=== PATIENT | male | born 1930 | race Caucasian/White ===

== ENCOUNTER → 2018-11-15 | Outpatient (CLI) | payer MEDICARE ==
--- NOTE | 2018-11-20 00:51 | EEG ---
REQUEST PHYSICIAN: Dr. Bernard. VIDEO ELECTRONYSTAGMOGRAPHIC REPORT: AGE: 88 VNG INDICATIONS: Vertigo for one year getting worse, varies in spells, can be triggered by head and neck positions or body positions. VNG FINDINGS: SPONTANEOUS NYSTAGMUS: SACCADES: Saccades shows poor peak velocities, accuracies and latencies. GAZE TEST: Gaze with fixation shows no nystagmus in any of the directions of gaze including centrally with vision denied. SINUSOIDAL TRACKING: Tracking is impaired. OKN TEST: The patient unable to follow instructions. PAULA-HALLPIKE TEST: Unable to perform due to poor mobility POSITION TEST: The patient also unable to follow instructions. With eyes open in the sitting position, there is no nystagmus including with vision denied. Dynamic position testing unable to be performed due to extreme limited mobility. CALORIC TEST: Was not done. IMPRESSION: This is a very limited VNG. Patient unable to perform calorics and also many of the positions. There was no nystagmus, however, in the seated position. There were multiple abnormalities favoring central nervous system dysfunction. Clinical correlation necessary. ESPERANZA / IJN: [id number] / RADHA
== END | disposition home or self-care (01) ==
LOC: NEUROMAIN 08:29
PROVIDERS: ATTEND Otolaryngology
DX: R90.89 Other abnormal findings on diagnostic imaging of central nervous system (principal); R42 Dizziness and giddiness
CPT/HCPCS: 92540

== ENCOUNTER 2021-11-17 12:21 | Emergency (ER) | payer MEDICARE ==
[2021-11-17] MEDS ORDERED: SODIUM CHLORIDE 0.9% 1,000 ML IV ONE (12:58)
--- NOTE | 2021-11-17 13:07 | ED ---
General Adult HPI - General Chief complaint: Altered Mental Status Stated complaint: Unresponsive Time Seen by Provider: 11/17/21 12:42 Source: EMS, RN notes reviewed, old records reviewed Mode of arrival: EMS Limitations: altered mental status - History of Present Illness Initial comments: Patient is an 89-year-old male with past medical history remarkable for dementia with depression, atrial fibrillation status post watchmen, pacemaker no longer and anticoagulation, cancer who presents emergency Department complaining of altered mental status. This is the third time patient has had a similar episode. The episode consists of being nonverbal, and "closing his eyes and following asleep without any responsiveness." They're concerned that the patient was having some stiffness on the first episode. No history of trauma. States today that the patient ate breakfast, seemed more sleepy, and then fell asleep. They were unable to wake him and called EMS. Previously was previously seen at [facility]. Workups then including brain imaging revealed negative. They were told by the patient's neurologist that this may occur with the pa char's history dementia with depression. They concerned because this is the third episode of this. They skipped [facility] and came here for further evaluation as well as a second opinion on the matter. Patient currently has no acute complaints. He is easily awakened. Following basic commands. He is alert and oriented times 1 to 2 which is his baseline. Patient's family state that the episode seemed to resolve on their own. Last time he was admitted as he was dehydrated. - Related Data Home Medications Medication Instructions Recorded Confirmed Digoxin [Lanoxin] 125 mcg PO HS 11/17/21 11/17/21 Donepezil [Aricept] 10 mg PO DAILY 11/17/21 11/17/21 Dutasteride [Avodart] 0.5 mg PO DAILY 11/17/21 11/17/21 Magnesium Oxide [Magnesium] 500 mg PO DAILY 11/17/21 11/17/21 Metoprolol Tartrate [Lopressor] 12.5 mg PO BID 11/17/21 11/17/21 Multivit-Min/Folic/Vit K/Lycop 1 tab PO DAILY 11/17/21 11/17/21 [Men's Multivitamin Tablet] Allergies Allergy/AdvReac Type Severity Reaction Status Date / Time [id number] Reductase AdvReac Unknown Verified 11/17/21 13:40 Inhibitor tramadol AdvReac Hallucinati Verified 11/17/21 13:40 ons Review of Systems ROS Statement: Those systems with pertinent positive or pertinent negative responses have been documented in the HPI. Review of Systems: CONST: Denies fever EYES: Denies blurry vision ENT: Denies nasal congestion C/V: Denies Chest pain RESP: Denies shortness of breath GI: Denies abdominal pain : Denies dysuria SKIN: Denies rash. MSK: Denies joint pain. NEURO: Denies headache ROS Other: All systems not noted in ROS Statement are negative. Past Medical History Past Medical History: Atrial Fibrillation, Cancer, Dementia, Prostate Disorder Additional Past Medical History / Comment(s): colon cancer 1978, cancer 2017 History of Any Multi-Drug Resistant Organisms: None Reported Past Surgical History: Heart Catheterization With Stent Additional Past Surgical History / Comment(s): stent 01/26/05 and 09/08/10, macular hole suregery left eye 2017 Past Psychological History: Depression Smoking Status: Never smoker Past Alcohol Use History: Occasional Past Drug Use History: None Reported General Exam - General Exam Comments Initial Comments: General: Appears in no acute distress. HEAD: Normal with no signs of head trauma. EYES: PERRLA, EOMI, conjunctiva normal, no discharge. Pupils are 2 mm and equal bilaterally. ENT: Hearing grossly intact, normal oropharynx. RESPIRATORY: Clear breath sounds bilaterally. No wheezes, rales, or rhonchi. C/V: Regular rate and rhythm. S1 and S2 auscultated, no edema, peripheral pulses 2+ and intact throughout ABD: Abd is soft, nontender, nondistended EXT: Normal range of motion, no obvious deformity SKIN: No rashes or lesions observed on exposed skin. NEURO: Alert and oriented x 1-2, his baseline per family. Cranial nerves II-XII intact. No focal sensory or strength deficits. NIH of 0. GCS of 15. Patient is alert and following commands at this time. Easily arousable. Limitations: altered mental status Course Vital Signs 11/17/21 11/17/21 11/17/21 12:23 14:48 15:00 Temperature 97.9 F 98.2 F 98 F Pulse Rate 69 60 75 Respiratory 18 16 16 Rate Blood Pressure 190/93 131/75 130/68 O2 Sat by Pulse 98 98 96 Oximetry 11/17/21 17:57 Temperature Pulse Rate 69 Respiratory 16 Rate Blood Pressure 136/75 O2 Sat by Pulse 98 Oximetry Medical Decision Making - Medical Decision Making Based on the patient's presentation and physical exam, I'm concerned for altered mental status. Appears to be back at his baseline. I do agree with the assessment that the patient may be experiencing his progressive dementia with depression symptoms. He has been having episodes of catatonia at home, however they self resolved. However I cannot rule out other etiology at this time including dehydration or infectious. Did recommend we obtain a CT brain in addition to infectious laboratory studies, cardiac studies. Family was in agreement this plan. Patient is currently acting his baseline. Vital signs within normal limits. EKG shows no signs of acute ischemia.Laboratory studies were relatively unremarkable. Urine is still pending at this time. Troponin undetectable. Chest x-ray shows no acute cardio primary process. Brain CT shows what appears to be moderate hydrocephalus. Recommend evaluation by neurosurgery for possible shunting. On reevaluation, patient remains unchanged. He is at his baseline mental status. I spoke with the patient's as well as the patient I believe it is best to transfer him. Worsening hydrocephalus could explain the patient's worsening dementia, as well as his worsening urinary incontinence. They were in agreement this plan. I did speak with our neurologist, Dr. Blanchard who also was in agreement with the plan. Patient requires transfer for neurosurgery evaluation which cannot be completed here as we do not have neurosurgical services. I did see speak with Alphonso Daly, who accepted the patient. Accepting physician in the emergency de partment Dr. Ferrera. Patient will be transferred in stable condition. - Lab Data Result diagrams: 11/17/21 13:11 11/17/21 13:11 Lab Results 11/17/21 11/17/21 11/17/21 Range/Units 13:11 13:11 13:11 WBC 6.8 (3.8-10.6) k/uL RBC 5.03 (4.30-5.90) m/uL Hgb 16.2 (13.0-17.5) gm/dL Hct 46.9 (39.0-53.0) % MCV 93.3 (80.0-100.0) fL MCH 32.2 (25.0-35.0) pg MCHC 34.5 (31.0-37.0) g/dL RDW 13.7 (11.5-15.5) % Plt Count 194 (150-450) k/uL MPV 8.4 Neutrophils % 56 % Lymphocytes % 29 % Monocytes % 8 % Eosinophils % 2 % Basophils % 1 % Neutrophils # 3.8 (1.3-7.7) k/uL Lymphocytes # 2.0 (1.0-4.8) k/uL Monocytes # 0.6 (0-1.0) k/uL Eosinophils # 0.2 (0-0.7) k/uL Basophils # 0.0 (0-0.2) k/uL PT 10.1 (9.0-12.0) sec INR 0.9 (<1.2) APTT 22.6 (22.0-30.0) sec Sodium 136 L (137-145) mmol/L Potassium 4.5 (3.5-5.1) mmol/L Chloride 99 (98-107) mmol/L Carbon Dioxide 22 (22-30) mmol/L Anion Gap 15 mmol/L BUN 17 (9-20) mg/dL Creatinine 0.94 (0.66-1.25) mg/dL Est GFR (CKD-EPI)AfAm 83 (>60 ml/min/1.73 sqM) Est GFR (CKD-EPI)NonAf 72 (>60 ml/min/1.73 sqM) Glucose 152 H (74-99) mg/dL Calcium 9.6 (8.4-10.2) mg/dL Total Bilirubin 0.5 (0.2-1.3) mg/dL AST 37 (17-59) U/L ALT 30 (4-49) U/L Alkaline Phosphatase 79 (38-126) U/L Ammonia (<30) umol/L Troponin I (0.000-0.034) ng/mL Total Protein 7.8 (6.3-8.2) g/dL Albumin 4.6 (3.5-5.0) g/dL Digoxin <0.4 ng/mL Serum Alcohol <10 mg/dL 11/17/21 11/17/21 Range/Units 13:11 13:47 WBC (3.8-10.6) k/uL RBC (4.30-5.90) m/uL Hgb (13.0-17.5) gm/dL Hct (39.0-53.0) % MCV (80.0-100.0) fL MCH (25.0-35.0) pg MCHC (31.0-37.0) g/dL RDW (11.5-15.5) % Plt Count (150-450) k/uL MPV Neutrophils % % Lymphocytes % % Monocytes % % Eosinophils % % Basophils % % Neutrophils # (1.3-7.7) k/uL Lymphocytes # (1.0-4.8) k/uL Monocytes # (0-1.0) k/uL Eosinophils # (0-0.7) k/uL Basophils # (0-0.2) k/uL PT (9.0-12.0) sec INR (<1.2) APTT (22.0-30.0) sec Sodium (137-145) mmol/L Potassium (3.5-5.1) mmol/L Chloride (98-107) mmol/L Carbon Dioxide (22-30) mmol/L Anion Gap mmol/L BUN (9-20) mg/dL Creatinine (0.66-1.25) mg/dL Est GFR (CKD-EPI)AfAm (>60 ml/min/1.73 sqM) Est GFR (CKD-EPI)NonAf (>60 ml/min/1.73 sqM) Glucose (74-99) mg/dL Calcium (8.4-10.2) mg/dL Total Bilirubin (0.2-1.3) mg/dL AST (17-59) U/L ALT (4-49) U/L Alkaline Phosphatase (38-126) U/L Ammonia <9 (<30) umol/L Troponin I <0.012 (0.000-0.034) ng/mL Total Protein (6.3-8.2) g/dL Albumin (3.5-5.0) g/dL Digoxin ng/mL Serum Alcohol mg/dL - EKG Data -: EKG Interpreted by Me EKG Comments: 12-lead Electrocardiogram Interpretation Note EKG was reviewed and interpreted by myself. 12-lead ECG performed at 1232 is interpreted by me as revealing atrial paced rhythm at a rate of 63 beats per minute. Four States is normal. DC interval is 297 ms, QRS duration is 85 ms, QTc is 410 ms.. There were no ST or T wave abnormalities to suggest myocardial ischemia or injury. R wave progression across the precordium was satisfactory. By my interpretation this EKG is non-diagnostic for acute ischemia. Critical Care Time Critical Care Time: Yes Total Critical Care Time: 35 Critical Care Time: Upon my evaluation, this patient had a high probability of imminent or life- threatening deterioration due to altered mental status, new onset hydrocephalus, which required my direct attention, intervention, and personal management. I have personally provided 35 minutes of critical care time exclusive of time spent on separately billable procedures. Time includes review of laboratory data, radiology results, discussion with consultants, and monitoring for potential decompensation. Interventions were performed as documented in my note. Disposition Clinical Impression: Dementia, Hydrocephalus, Altered mental status, Urinary incontinence Disposition: OTHER INSTITUTION NOT DEFINED Condition: Stable Referrals: Gisela Dangelo MD [Primary Care Provider] - 1-2 days Time of Disposition: 16:00 - Out of Hospital Transfer - Req. Specs Out of Hospital Transfer - Requested Specifics: Other Emergency Center (Transfer for escalation of care. Requires neurosurgery evaluation.)
[2021-11-17 13:15] LABS: Basophils % (A) 1 %; Eosinophils # (A) 0.2 k/uL (0-0.7); Eosinophils % (A) 2 %; HCT 46.9 % (39.0-53.0); HGB 16.2 gm/dL (13.0-17.5); Lymphocytes % (A) 29 %; MCH 32.2 pg (25.0-35.0); MCHC 34.5 g/dL (31.0-37.0); MCV 93.3 fL (80.0-100.0); Mean Platelet Volume 8.4; Monocytes # (A) 0.6 k/uL (0-1.0); Monocytes % (A) 8 %; Neutrophils # (A) 3.8 k/uL (1.3-7.7); Neutrophils % (A) 56 %; Platelet Count 194 k/uL (150-450); RBC 5.03 m/uL (4.30-5.90); RDW 13.7 % (11.5-15.5); WBC 6.8 k/uL (3.8-10.6)
[2021-11-17 13:23] LABS: INR 0.9 (<1.2); Partial Thromboplastin Time 22.6 sec (22.0-30.0); Prothrombin Time 10.1 sec (9.0-12.0)
--- NOTE | 2021-11-17 13:33 | XR ---
EXAMINATION TYPE: XR chest 2V DATE OF EXAM: 11/17/2021 COMPARISON: NONE HISTORY: Shortness of breath TECHNIQUE: Frontal and lateral views of the chest are obtained. FINDINGS: Scattered senescent parenchymal changes noted. Hyperinflation compatible with COPD. No evidence for infiltrate. No evidence for atelectasis. Heart size is stable. Mediastinal structures are stable and grossly unremarkable. No evidence for hilar prominence. Degenerative changes dorsal spine. IMPRESSION: 1. No evidence for acute pulmonary disease.
[2021-11-17 13:37] LABS: ALT 30 U/L (4-49); AST 37 U/L (17-59); African American GFR (CKD) 83 (>60 ml/min/1.73 sqM); Albumin 4.6 g/dL (3.5-5.0); Alcohol <10 mg/dL; Alkaline Phosphatase 79 U/L (38-126); Anion Gap 15 mmol/L; Blood Urea Nitrogen 17 mg/dL (9-20); Calcium 9.6 mg/dL (8.4-10.2); Carbon Dioxide 22 mmol/L (22-30); Chloride 99 mmol/L (98-107); Digoxin <0.4 ng/mL; Glucose 152 mg/dL (74-99); Non-African American GFR(CKD) 72 (>60 ml/min/1.73 sqM); Potassium 4.5 mmol/L (3.5-5.1); Sodium 136 mmol/L (137-145); Total Bilirubin 0.5 mg/dL (0.2-1.3); Total Protein 7.8 g/dL (6.3-8.2)
--- NOTE | 2021-11-17 13:41 | CT ---
EXAMINATION TYPE: CT brain wo con DATE OF EXAM: 11/17/2021 COMPARISON: None HISTORY: 89-year-old male confusion, Altered mental status. TECHNIQUE: Examination was done in axial plane without intravenous contrast. Coronal and sagittal r econstructions performed. CT DLP: 1127.4 mGycm Automated exposure control for dose reduction was used. FINDINGS: There is no evidence of acute intracranial hemorrhage, acute ischemic changes, mass, mass-effect, or extra-axial fluid collection. There is no effacement of cerebral sulci or basal subarachnoid cister ns. There is moderate hydrocephalus. Campos ratio calculated at 0.46. There no midline shift. Frederick-white matter distinction is preserved. Leftward nasal septal deviation. Paranasal sinuses and mastoid air cells are well pneumatized. Orbits and globes are intact. IMPRESSION: 1. Moderate hydrocephalus with Cj's ratio calculated at 0.46. Consider referral for assessment of p ossible NPH and the need for potential shunting. 2. Otherwise, no acute intracranial abnormality seen.
[2021-11-17 14:54] VITALS: RESP 16
[2021-11-17 17:57] VITALS: TEMP 98
[2021-11-17 17:59] VITALS: BP 136/75; PULSE 69
== END 2021-11-17 18:22 | disposition other institution (70) ==
LOC: EC 12:21
DX: F03.90 Unspecified dementia, unspecified severity, without behavioral disturbance, psychotic disturbance, mood disturbance, and anxiety (principal); G91.9 Hydrocephalus, unspecified; R32 Unspecified urinary incontinence; I48.91 Unspecified atrial fibrillation; Z88.8 Allergy status to other drugs, medicaments and biological substances; Z79.899 Other long term (current) drug therapy; Z88.6 Allergy status to analgesic agent
CPT/HCPCS: 36415; 93005; 80053; 82140; 80162; 84484; 85025; 85610; 85730; 87040; 71046; 70450; 99285; G0480; 80320